=== PATIENT | female | born 1995 | race American Indian/Alaskan Native ===

== ENCOUNTER 2017-07-30 13:46 | Emergency (ER) | payer BC, MEDICAID ==
[2017-07-30] MEDS ORDERED: TORADOL IM ONE (18:40)
--- NOTE | 2017-07-30 20:17 | XRay Report ---
FINAL REPORT PROCEDURE: XR KNEE 3V RT TECHNIQUE: Right knee, three views HISTORY: pain r/t work stress injury COMPARISON: No prior studies are available for comparison. FINDINGS: No acute fracture or dislocation. No focal osseous lesions. No joint effusion. IMPRESSION: No acute osseous abnormality is identified
--- NOTE | 2017-07-30 20:27 | Emergency Department Report ---
ED Extremity Problem HPI - General Chief complaint: Extremity Injury, Lower Stated complaint: RIGHT KNEE PAIN Time Seen by Provider: 07/30/17 18:30 Source: patient Mode of arrival: Ambulatory Limitations: No Limitations - History of Present Illness Initial comments: 22-year-old female presents to the hospital with right knee injury occurred at work today. Patient was unloading a truck and walking backwards. She had an object in her hand and started to twist when she injured her knee. She did not fall have directly impact on the knee. She complains of generalized anterior knee pain that is worse with palpation, swelling, movement, and ambulation. No fever or warmth reported. Severity scale (0 -10): 4 - Related Data Home Medications Medication Instructions Recorded Confirmed Last Taken Vits96/Iron Fum/Folic 1 each PO QDAY 03/12/14 10/06/15 03/11/14 09:00 [ Tablet] 1 tab Previous Rx's Medication Instructions Recorded Last Taken Type Ibuprofen [Motrin] 800 mg PO Q8HR PRN #30 tablet 07/30/17 Unknown Rx Allergies Allergy/AdvReac Type Severity Reaction Status Date / Time promethazine HCl Allergy Seizure Verified 03/12/14 03:46 [From Phenergan] ED Review of Systems ROS: Stated complaint: RIGHT KNEE PAIN Other details as noted in HPI Comment: All other systems reviewed and negative ED Past Medical Hx - Past Medical History Hx Hypertension: Yes (GHT WITH CURRENT ) Hx Congestive Heart Failure: No Hx Diabetes: No Hx Deep Vein Thrombosis: No Hx Renal Disease: No Hx Sickle Cell Disease: No Hx Seizures: No Hx Asthma: No Hx COPD: No Hx HIV: No - Social History Smoking Status: Never Smoker Substance Use Type: None - Medications Home Medications: Home Medications Medication Instructions Recorded Confirmed Last Taken Type Vits96/Iron Fum/Folic 1 each PO QDAY 03/12/14 10/06/15 03/11/14 09:00 History [ Tablet] 1 tab Ibuprofen [Motrin] 800 mg PO Q8HR PRN #30 tablet 07/30/17 Unknown Rx ED Physical Exam - General Limitations: No Limitations - Other Other exam information: General: No limitations, patient is alert in no acute distress Head exam: Atraumatic, normocephalic Eyes exam: Normal appearance ENT: Moist mucous membrane, normal oropharynx Neck exam: Normal inspection, full range of motion, no meningismus nontender Respiratory exam: Clear to auscultation bilateral, no wheezes, rales, crackles Cardiovascular: Normal rate and rhythm, normal heart sounds Abdomen: Soft, nondistended, and nontender, with normal bowel sounds, no rebound, or guarding Extremity: Full range of motion, generalized anterior knee tenderness without specific joint tenderness or bony tenderness. Mild swelling noted. Able to bear weight Back: Normal Inspection, full range of motion, no tenderness Neurologic: Alert, oriented x3, cranial nerves intact, no motor or sensory deficit Psychiatric: normal affect, normal mood Skin: Warm, dry, intact ED Course Vital Signs 07/30/17 07/30/17 14:07 18:49 Temperature 98.6 F Pulse Rate 82 Respiratory 18 18 Rate Blood Pressure 145/90 O2 Sat by Pulse 100 Oximetry - Reevaluation(s) Reevaluation #1: 07/30/17 20:23 patient received Toradol during the stay ED Medical Decision Making - Radiology Data Radiology results: report reviewed Right knee x-ray: No acute findings - Medical Decision Making Patient has a knee injury occurred. No signs of fracture or effusion. Pain is to discharged with symptomatic treatment and rest - Differential Diagnosis fracture, contusion, sprain Critical Care Time: No Critical care attestation.: If time is entered above; I have spent that time in minutes in the direct care of this critically ill patient, excluding procedure time. ED Disposition Clinical Impression: Strain of right knee Disposition: [id number] TO HOME OR SELFCARE Is pt being admited?: No Does the pt Need Aspirin: No Condition: Stable Instructions: Knee Sprain (ED) Additional Instructions: Take the medication as prescribed. Return is symptoms worsen. Follow-up with the primary care doctor or clinic provided and an orthopedic doctor. Prescriptions: Ibuprofen [Motrin] 800 mg PO Q8HR PRN #30 tablet PRN Reason: Pain Referrals: PRIMARY MD SHERRIE [Primary Care Provider] - 3-5 Days BRENDA ARVIZU MD [Staff Physician] - 3-5 Days (primary care doctor) BRADEN CAVAZOS MD [Staff Physician] - 3-5 Days (orthopedic doctor) Forms: Work/School Release Form(ED) Time of Disposition: 20:27
[2017-07-30 20:49] VITALS: BP 152/85
== END 2017-07-30 20:52 | disposition home or self-care (01) ==
LOC: ED 13:46
DX: S83.91XA Sprain of unspecified site of right knee, initial encounter (principal); X50.9XXA Other and unspecified overexertion or strenuous movements or postures, initial encounter; Y93.89 Activity, other specified; Y92.89 Other specified places as the place of occurrence of the external cause; Y99.8 Other external cause status
CPT/HCPCS: 73562; 96372; 99283; J1885